=== PATIENT | female | born 1980 | race Caucasian/White ===

== ENCOUNTER 2019-11-05 17:27 | Emergency (ER) | payer SELFPAY ==
[~2019-11-05] VITALS: Ht 162.6 cm; Wt 68.0 kg
--- NOTE | 2019-11-05 17:27 | NUR ---
BIB ra, pt was found in [employer] store with eratic behavior s/p meth use, pt to bed 14, placed on monitor, vss, nad noted, pending md bennett
[2019-11-05] MEDS ORDERED: LORAZEPAM INJ 2 MG/ML VIAL ONE (17:34)
[2019-11-05] MEDS ORDERED: diphenhydrAMINE HCL 50 MG/ML VIAL ONE (17:34)
[2019-11-05 17:53] LABS: BASOPHILS # (AUTO) 0.1 /CMM (0.0-0.2); BASOPHILS % (AUTO) 0.8 % (0.0-2.0); EOSINOPHILS % (AUTO) 0.3 % (0.0-6.0); HEMATOCRIT 31 % (33-45); HEMOGLOBIN 10.2 g/dL (11.5-14.8); LYMPHOCYTES # (AUTO) 1.7 /CMM (0.8-4.8); LYMPHOCYTES % (AUTO) 16.9 % (20.0-44.0); MEAN CORPUSCULAR HGB CONC 33 g/dl (31.0-36.0); MEAN CORPUSCULAR VOLUME 88 fL (82-100); MONOCYTES # (AUTO) 0.8 /CMM (0.1-1.30); MONOCYTES % (AUTO) 8.6 % (2.0-12.0); NEUTROPHILS # (AUTO) 7.2 /CMM (1.8-8.9); NEUTROPHILS % (AUTO) 73.4 % (43.0-81.0); PLATELET COUNT (AUTO) 435 /CMM (150-450); RED BLOOD CELL COUNT(AUTO) 3.56 MIL/uL (4.0-5.2); WHITE BLOOD COUNT (AUTO) 9.8 K/uL (4.3-11.0)
[2019-11-05] MEDS ORDERED: LORAZEPAM INJ 2 MG/ML VIAL IM ONE (18:00)
[2019-11-05] MEDS ORDERED: diphenhydrAMINE HCL 50 MG/ML VIAL IM ONE (18:00)
[2019-11-05 18:01] LABS: CALCIUM, SERUM 8.7 mg/dL (8.5-10.1); CARBON DIOXIDE 25 mmol/L (21-32); CHLORIDE 100 mmol/L (98-107); CREATININE 0.9 mg/dL (0.6-1.3); GLUCOSE 85 mg/dL (74-106); POTASSIUM 3.3 mmol/L (3.5-5.1); SODIUM SERUM 136 mmol/L (136-145); UREA NITROGEN, BLOOD 28 mg/dL (7-18)
--- NOTE | 2019-11-05 18:06 | NUR ---
URINE COLLECTED AND SENT TO LAB
[2019-11-05 18:07] LABS: ALANINE AMINOTRANSFERASE 29 U/L (12-78); ALBUMIN 3.5 g/dL (3.4-5.0); ALCOHOL, BLOOD < 3 mg/dL (0-0); ALKALINE PHOSPHATASE 95 U/L (46-116); ASPARTATE AMINOTRANSFERASE 23 U/L (15-37); BILIRUBIN,DIRECT 0.1 mg/dL (0.0-0.2); BILIRUBIN,TOTAL 0.3 mg/dL (0.2-1.0); TOTAL PROTEIN, SERUM 6.9 g/dL (6.4-8.2)
--- NOTE | 2019-11-05 18:07 | NUR ---
SEEN BY [facility] OFFICER D/T REPORT OF OD; [facility] NOT PROCEEDING FOR ANY REPORT.
[2019-11-05 18:08] LABS: ACETAMINOPHEN 0 ug/ml (10-30); SALICYLATE 1.1 mg/dL (2.8-20.0)
[2019-11-05 18:16] LABS: APPEARANCE,URINE Clear (CLEAR); BILIRUBIN,URINE SMALL (NEGATIVE); BLOOD, URINE Trace-intact Ery/uL (NEGATIVE); COLOR,URINE Yellow (YELLOW); KETONES,URINE 15 (NEGATIVE); LEUKOCYTE ESTERASE ,URINE Negative (NEGATIVE); NITRITE, URINE Negative (NEGATIVE); PROTEIN,URINE Trace mg/dl (NEGATIVE); UGLUCOSE Negative (NEGATIVE); UROBILINOGEN,URINE 0.2 EU/dL (0.2)
[2019-11-05 18:39] LABS: BACTERIA,URINE 1+ /HPF (None Seen); SQUAMOUS EPITHELIAL CELL,UR 0-2 /HPF (None Seen); WBC,URINE 0-2 /HPF (0-3)
--- NOTE | 2019-11-05 19:01 | NUR ---
Dmitriy hinojosapilar in ED - 11/06/19 at 0019 by ESHA KELLY soni, pt was found in [employer] cream store with eratic behavior s/p meth use, pt to bed 14, placed on monitor, vss, nad noted, pending md bennett
[2019-11-05 21:00] LABS: CREATINE KINASE, TOTAL 306 U/L (26-192)
[2019-11-06] MEDS ORDERED: LORAZEPAM 1 MG TABLET PO ONE (00:30)
[2019-11-06] MEDS ORDERED: LEVETIRACETAM (250 MG) 250 MG TABLET PO ONE ×2 (00:30→00:36)
[2019-11-06] MEDS ORDERED: LORAZEPAM 0.5 MG TABLET ONE (00:36)
--- NOTE | 2019-11-06 00:59 | NUR ---
Patient discharged to home in stable condition. Written and verbal after care instructions given. Patient verbalizes understanding of instruction and RX. Pt signed Homeless discharge paper. VSS. Pt ambulated with steady gait. Given food.
[2019-11-06 01:01] VITALS: BP 132/72
== END 2019-11-06 01:01 | disposition home or self-care (01) ==
LOC: ER 17:34
DX: F28 Other psychotic disorder not due to a substance or known physiological condition (principal); E87.6 Hypokalemia; D64.9 Anemia, unspecified
CPT/HCPCS: 80048; 80076; 80305; 80307; 80329; 81001; 82550; 84702; 85025; 96372 ×2; 99284; G0480; J1200; J2060; 81000-TC

== ENCOUNTER 2019-11-06 11:26 | Emergency (ER) | payer SELFPAY ==
[~2019-11-06] VITALS: Ht 162.6 cm; Wt 52.2 kg
[2019-11-06] MEDS ORDERED: HALOPERIDOL LACTATE INJ 5 MG/ML VIAL ONE (11:49)
[2019-11-06] MEDS ORDERED: diphenhydrAMINE HCL 50 MG/ML VIAL ONE (11:49)
[2019-11-06] MEDS ORDERED: LORAZEPAM INJ 2 MG/ML VIAL ONE (11:49)
--- NOTE | 2019-11-06 11:50 | NUR ---
[id number], PD noted to be acting bizzare in a bus stop. 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 Patient talking to self, jerking movement. Sitter at bedside, kept comfortable. Needs attended.
[2019-11-06 12:00] LABS: BASOPHILS % (AUTO) 0.4 % (0.0-2.0); EOSINOPHILS % (AUTO) 0.1 % (0.0-6.0); HEMATOCRIT 31 % (33-45); HEMOGLOBIN 9.9 g/dL (11.5-14.8); LYMPHOCYTES # (AUTO) 0.8 /CMM (0.8-4.8); LYMPHOCYTES % (AUTO) 6.8 % (20.0-44.0); MEAN CORPUSCULAR HGB CONC 32 g/dl (31.0-36.0); MEAN CORPUSCULAR VOLUME 89 fL (82-100); MONOCYTES # (AUTO) 0.6 /CMM (0.1-1.30); MONOCYTES % (AUTO) 4.6 % (2.0-12.0); NEUTROPHILS % (AUTO) 88.1 % (43.0-81.0); PLATELET COUNT (AUTO) 430 /CMM (150-450); RED BLOOD CELL COUNT(AUTO) 3.49 MIL/uL (4.0-5.2); WHITE BLOOD COUNT (AUTO) 12.5 K/uL (4.3-11.0)
[2019-11-06] MEDS ORDERED: LORAZEPAM INJ 2 MG/ML VIAL IM/IV ONE (12:00)
[2019-11-06] MEDS ORDERED: HALOPERIDOL LACTATE INJ 5 MG/ML VIAL IM ONE (12:00)
[2019-11-06] MEDS ORDERED: diphenhydrAMINE HCL 50 MG/ML VIAL IM ONE (12:00)
[2019-11-06 12:08] LABS: CALCIUM, SERUM 8.5 mg/dL (8.5-10.1); CARBON DIOXIDE 26 mmol/L (21-32); CHLORIDE 101 mmol/L (98-107); CREATININE 0.7 mg/dL (0.6-1.3); GLUCOSE 89 mg/dL (74-106); POTASSIUM 3.3 mmol/L (3.5-5.1); SODIUM SERUM 137 mmol/L (136-145); UREA NITROGEN, BLOOD 8 mg/dL (7-18)
[2019-11-06 12:14] LABS: ALANINE AMINOTRANSFERASE 30 U/L (12-78); ALBUMIN 3.4 g/dL (3.4-5.0); ALCOHOL, BLOOD < 3 mg/dL (0-0); ALKALINE PHOSPHATASE 91 U/L (46-116); ASPARTATE AMINOTRANSFERASE 30 U/L (15-37); BILIRUBIN,DIRECT 0.1 mg/dL (0.0-0.2); BILIRUBIN,TOTAL 0.2 mg/dL (0.2-1.0); TOTAL PROTEIN, SERUM 6.8 g/dL (6.4-8.2)
--- NOTE | 2019-11-06 13:00 | NUR ---
patient asleep, arousable. no distress noted.
[2019-11-06 13:25] LABS: SALICYLATE 1.1 mg/dL (2.8-20.0)
[2019-11-06 14:00] LABS: APPEARANCE,URINE Clear (CLEAR); BILIRUBIN,URINE Negative (NEGATIVE); BLOOD, URINE Negative Ery/uL (NEGATIVE); COLOR,URINE Yellow (YELLOW); KETONES,URINE Trace (NEGATIVE); LEUKOCYTE ESTERASE ,URINE Negative (NEGATIVE); NITRITE, URINE Negative (NEGATIVE); PROTEIN,URINE Negative (NEGATIVE); UGLUCOSE Negative (NEGATIVE); UROBILINOGEN,URINE 0.2 EU/dL (0.2)
[2019-11-06 14:02] LABS: BACTERIA,URINE Rare /HPF (None Seen); RBC,URINE 0-2 /HPF (0-2); SQUAMOUS EPITHELIAL CELL,UR Few /HPF (None Seen); WBC,URINE 0-2 /HPF (0-3)
--- NOTE | 2019-11-06 15:13 | NUR ---
patient awake, food tray ordered.
--- NOTE | 2019-11-06 17:40 | NUR ---
No distress noted. IV removed. Catheter intact and site benign. Pressure and 4x4 applied to site. No bleeding noted. Patient given written and verbal discharge instructions. Patient verbalizes understanding of instructions. Patient is ambulatory with steady gait. Refuses offer of correction placement. Patient given list of available shelters in surrounding area. Tap card provided.
[2019-11-06 18:09] VITALS: BP 119/73
== END 2019-11-06 18:09 | disposition home or self-care (01) ==
LOC: ER 11:32
DX: R45.1 Restlessness and agitation (principal); F15.10 Other stimulant abuse, uncomplicated
CPT/HCPCS: 36415; 80048; 80076; 80305; 80307; 80329; 81001; 84703; 85025; 96372 ×3; 99285; G0480; J1200; J1630; J2060; 81000-TC

== ENCOUNTER 2019-11-09 16:40 | Emergency (ER) | payer MEDICAID ==
[~2019-11-09] VITALS: Ht 165.1 cm; Wt 49.9 kg
[2019-11-09 16:40] VITALS: BP 123/44
--- NOTE | 2019-11-09 16:43 | NUR ---
CALLED TO TRIAGE, PATIENT IN RESTROOM
[2019-11-09] MEDS ORDERED: LEVETIRACETAM (250 MG) 250 MG TABLET PO ONE ×2 (17:00→17:05)
== END 2019-11-09 17:21 | disposition home or self-care (01) ==
LOC: ER 16:42
DX: G40.909 Epilepsy, unspecified, not intractable, without status epilepticus (principal); F15.10 Other stimulant abuse, uncomplicated